=== PATIENT | male | born 1955 | race Caucasian/White ===

== ENCOUNTER 2022-07-28 14:11 | Emergency (ER) | payer OTHER, SELFPAY ==
[2022-07-28 14:36] VITALS: BP 154/91; PULSE 97; RESP 18; TEMP 36.4; O2SAT 95; BMI 36.9
--- NOTE | 2022-07-28 15:41 | ED_ITS ---
HPI - General Adult General Chief complaint: Extremity Pain/Injury, Lower Stated complaint: Gout attack, leg pain Time Seen by Provider: 07/28/22 15:15 History of Present Illness HPI narrative: This 66-year-old male comes in reporting a flare-up of gout in his right lower extremity. He states that he has a history of gout and has received prednisone and indomethacin to treat at. He does not report any other injury event. He reports pain in the inferior aspect of the right medial malleolus. He is wearing an Keyur wrap over this area along with a stocking and a shoe. When I stated that most people with a gout flare up did not tolerate any kind of clothing or pressure on that area he was insistent that this was in fact a gout flare up. He also states that he ran out of his citalopram 2 weeks ago. He does have arrangements for follow-up with a dentist and with the primary ph ysician. Related Data Home Medications Medication Instructions Recorded Confirmed allopurinol 100 mg tablet 100 mg PO DAILY 07/28/22 07/28/22 citalopram 40 mg tablet 20 mg PO BID 07/28/22 07/28/22 indomethacin 25 mg capsule 25 mg PO BID 07/28/22 07/28/22 Previous Rx's Medication Instructions Recorded citalopram 40 mg tablet 40 mg PO DAILY #20 tabs 07/28/22 indomethacin 25 mg capsule 25 mg PO TID #15 caps 07/28/22 prednisone 10 mg tablet 10 mg PO BID #10 tabs 07/28/22 Allergies Allergy/AdvReac Type Severity Reaction Status Date / Time No Known Drug Allergies Allergy Verified 07/28/22 14:44 Review of Systems Status of ROS: Reports: 10 or more systems reviewed and unremarkable except as noted in History and below Narrative: Constitutional: No fevers, no weight gain or loss. Eyes: No discharge. No vision changes. HENT: No congestion, no sore throat, no ear pain. He reports some dental pain and need for removal of a couple teeth. Cardiovascular: No chest pain, no palpitations. Respiratory: No shortness of breath, no wheezes, no cough. Gastrointestinal: No abdominal pain, no vomiting, no diarrhea. Genitourinary: No dysuria, no hematuria. Musculoskeletal: Normal range of motion. Pain in the medial aspect of the right ankle. Skin: No rashes, no pruritis. Neurological: No dizziness, weakness, sensory change, speech change. Endo/Heme/Allergies: No bruising or bleeding. No polydipsia. Pysch: no suicidality, no anxiety, no insomnia. All other systems reviewed and are negative. Exam Narrative: Exam Narrative: Constitutional: Well-developed, well-nourished, no acute distress. HEENT: Normocephalic, atraumatic. Neck: Normal range of motion. Nontender. Supple. Heart: Intact distal pulses. Lungs: No chest discomfort. No wheezes, rhonchi, or rales. Abdomen: Nontender. Back: Normal range of motion. Extremities: Normal range of motion. No sign of injury. Upon removing the Keyur wrap around his right ankle there is some erythema and some typical swelling distal from the Keyur wrap. Skin: Intact. No rash. Warm. No erythema or pallor. Neurologic: No altered sensation. No weakness. Alert and oriented. Psychiatric: No suicidality. No anxiety or depression. No insomnia. Nursing notes and vitals signs are reviewed. Const: Vital Signs, click to edit/add: Vital Signs - 24 hr 07/28/22 14:36 Temperature 97.5 F L Pulse Rate [Right Pulse Oximeter] 97 Respiratory Rate 18 Blood Pressure [Ri ght Upper Arm] 154/91 H Pulse Oximetry 95 Oxygen Delivery Me thod Room Air Course Vital Signs Vital signs: Initial Vital Signs Temperature 97.5 F L 07/28/22 14:36 Temperature Source Temporal Artery Scan 07/28/22 14:36 Pulse Rate 97 07/28/22 14:36 Pulse Rhythm 07/28/22 14:36 Pulse Strength 3+ Normal 07/28/22 14:36 Respiratory Rate 18 07/28/22 14:36 Blood Pressure 154/91 H 07/28/22 14:36 Blood Pressure Mean 112 07/28/22 14:36 Blood Pressure Position Sitting 07/28/22 14:36 Pulse Oximetry 95 07/28/22 14:36 Oxygen Delivery Method 07/28/22 14:36 Vital Signs Temperature 97.5 F L 07/28/22 14:36 Pulse Rate 97 07/28/22 14:36 Respiratory Rate 18 07/28/22 14:36 Blood Pressure 154/91 H 07/28/22 14:36 Pulse Oximetry 95 07/28/22 14:36 Oxygen Delivery Method 07/28/22 14:36 Temperature 97.5 F L 07/28/22 14:36 Pulse Rate 97 07/28/22 14:36 Respiratory Rate 18 07/28/22 14:36 Blood Pressure 154/91 H 07/28/22 14:36 Pulse Oximetry 95 07/28/22 14:36 Oxygen Delivery Method 07/28/22 14:36 Medical Decision Making MDM Narrative Medical decision making narrative: This patient comes in with increased pain in the medial aspect of his right ankle. He does not report any other injury event to trigger this and states that this is most certainly gout. When I questioned him how typically people with a gout flare up are not tolerant of wearing anything on the affected area he reassured me that he knew his body in that this was in fact a gout flare up. The patient does have normal vital signs and he is able to ambulate. It seemed best not to generate an argument over this particular diagnosis. I advised him to follow up with primary physician. I did provide prescription for a few tablets of prednisone and indomethacin. Additionally I did also prescribe citalopram. He plans to follow-up with a dentist and with the primary physician. Discharge Plan Discharge Clinical Impression: Depression, Arthralgia of ankle, right Patient Disposition: Home, Self-Care Condition: Unchanged Additional Instructions: Take medication as needed and indicated. Follow up with primary physician for ongoing management. Prescriptions: New prednisone 10 mg tablet 10 mg PO BID Qty: 10 0RF citalopram 40 mg tablet 40 mg PO DAILY Qty: 20 0RF indomethacin 25 mg capsule 25 mg PO TID Qty: 15 0RF Rx Instructions: administer with food or milk No Action citalopram 40 mg tablet 20 mg PO BID allopurinol 100 mg tablet 100 mg PO DAILY indomethacin 25 mg capsule 25 mg PO BID Rx Instructions: administer with food or milk Follow Up/Referrals: Donovan Smith MD [Primary Care Provider] - Stand Alone Forms: [employer] Info Instructions
== END 2022-07-28 16:20 | disposition home or self-care (01) ==
PROVIDERS: Emergency Provider Emergency Medicine Emergency Medical Services; PCP Family Medicine
DX: M25.571 Pain in right ankle and joints of right foot (principal); F32.A Depression, unspecified
CPT/HCPCS: 99283; 99284

== ENCOUNTER 2022-10-22 08:21 | Emergency (ER) | payer MEDICARE, SELFPAY ==
[2022-10-22 08:28] VITALS: BP 147/83; PULSE 97; RESP 20; TEMP 36.5; O2SAT 92; BMI 38.0
--- NOTE | 2022-10-22 15:40 | ED.GENADULT ---
HPI - General Adult General Date Seen: 10/22/22 Chief complaint: Unspecified Complaint, Adult Stated complaint: Medication refill/Citalopram Time Seen by Provider: 10/22/22 09:38 Source: patient Mode of arrival: ambulatory Limitations: no limitations History of Present Illness HPI narrative: Patient is a very nice 66-year-old gentleman, who failed going to his primary care visit, as he missed this. He presents here for refill of his gout medications in his depression medication. He is very sheepish about this and apologetic, but says he really needs medication as he has been off of his depression medication now for 3 weeks. He is not suicidal or homicidal, but would really like to get back on it. His medications that he was on for his gout were outlined in his previous visit which I was able to review. Related Data Home Medications Medication Instructions Recorded Confirmed allopurinol 100 mg tablet 100 mg PO DAILY 07/28/22 07/28/22 citalopram 40 mg tablet 20 mg PO BID 07/28/22 07/28/22 indomethacin 25 mg capsule 25 mg PO BID 07/28/22 07/28/22 Previous Rx's Medication Instructions Recorded citalopram 40 mg tablet 40 mg PO DAILY #20 tabs 07/28/22 indomethacin 25 mg capsule 25 mg PO TID #15 caps 07/28/22 prednisone 10 mg tablet 10 mg PO BID #10 tabs 07/28/22 citalopram 40 mg tablet 20 mg PO DAILY #30 tabs 10/22/22 indomethacin 25 mg capsule 25 mg PO TID #15 caps 10/22/22 prednisone 10 mg tablet 10 mg PO BID #10 tabs 10/22/22 Allergies Allergy/AdvReac Type Severity Reaction Status Date / Time No Known Drug Allergies Allergy Verified 07/28/22 14:44 Review of Systems Status of ROS: Reports: 6 or more systems reviewed and unremarkable except as noted in History and below PFSH PFSH Social History Smoking Status: Never smoker Do you use any of these nicotine containing products: None Second hand tobacco smoke exposure: No How often do you have a drink containing alcohol: 2-3 times a week How many standard drinks containing alcohol do you have on a typical day: 3 or 4 AUDIT-C Alcohol total score: 4 Non-prescribed substance use: denies use Exam Narrative: Exam Narrative: Patient is seen in room 6 he has no apparent distress is clear normal bilaterally is pupils equal round reactive to light, TMs normal oropharynx normal there is no adenopathy anterior posterior chains chest is clear heart sounds are normal, abdomen is soft there is no guarding, examination left foot shows stigmata of gout over the great toe, but is not acutely irritated pre rate now. Const: Vital Signs, click to edit/add: Vital Signs - 24 hr 10/22/22 08:28 Temperature 97.7 F Pulse Rate [Right Pulse Oximeter] 97 Respiratory Rate 20 Blood Pressure [Ri ght Upper Arm] 147/83 H Pulse Oximetry 92 Oxygen Delivery Me thod Room Air Course Vital Signs Vital signs: Initial Vital Signs Temperature 97.7 F 10/22/22 08:28 Temperature Source Temporal Artery Scan 10/22/22 08:28 Pulse Rate 97 10/22/22 08:28 Respiratory Rate 20 10/22/22 08:28 Blood Pressure 147/83 H 10/22/22 08:28 Blood Pressure Mean 104 10/22/22 08:28 Blood Pressure Position Sitting 10/22/22 08:28 Pulse Oximetry 92 10/22/22 08:28 Oxygen Delivery Method 10/22/22 08:28 Vital Signs Temperature 97.7 F 10/22/22 08:28 Pulse Rate 97 10/22/22 08:28 Respiratory Rate 20 10/22/22 08:28 Blood Pressure 147/83 H 10/22/22 08:28 Pulse Oximetry 92 10/22/22 08:28 Oxygen Delivery Method 10/22/22 08:28 Temperature 97.7 F 10/22/22 08:28 Pulse Rate 97 10/22/22 08:28 Respiratory Rate 20 10/22/22 08:28 Blood Pressure 147/83 H 10/22/22 08:28 Pulse Oximetry 92 10/22/22 08:28 Oxygen Delivery Method 10/22/22 08:28 Medical Decision Making MDM Narrative Medical decision making narrative: Patient is seen in the emergency room, he is stable, I reviewed the previous notes, I do not think it is unreasonable to put him back on his indomethacin and prednisone as needed, small supply given, and putting him back on his it depression medications and we did make him a follow-up visit with his primary care physician. In like fill. He was very comfortable with this plan. Discharge Plan Discharge Clinical Impression: Medication refill, Gout, Depression Patient Disposition: Home, Self-Care Condition: Stable Instructions: Medicine Refill (ED) Additional Instructions: Follow up appointment made at the [facility] on 11/04 with a 1:15pm arrival time. If you have any questions or need to reschedule, please call [phone]. [facility] [address] [place] [address] Prescriptions: New indomethacin 25 mg capsule 25 mg PO TID Qty: 15 0RF Rx Instructions: administer with food or milk prednisone 10 mg tablet 10 mg PO BID Qty: 10 0RF citalopram 40 mg tablet 20 mg PO DAILY Qty: 30 2RF No Action citalopram 40 mg tablet 20 mg PO BID allopurinol 100 mg tablet 100 mg PO DAILY indomethacin 25 mg capsule 25 mg PO BID Rx Instructions: administer with food or milk prednisone 10 mg tablet 10 mg PO BID Qty: 10 0RF citalopram 40 mg tablet 40 mg PO DAILY Qty: 20 0RF indomethacin 25 mg capsule 25 mg PO TID Qty: 15 0RF Rx Instructions: administer with food or milk Follow Up/Referrals: Donovan Smith MD [Primary Care Provider] - Stand Alone Forms: [employer] Info Instructions
== END 2022-10-22 10:26 | disposition home or self-care (01) ==
PROVIDERS: Emergency Provider Family Medicine; PCP Family Medicine
DX: Z76.0 Encounter for issue of repeat prescription (principal); M10.9 Gout, unspecified; F32.A Depression, unspecified
CPT/HCPCS: 99282; 99283

== ENCOUNTER 2022-11-04 13:43 | Outpatient (CLI) | payer MEDICARE, SELFPAY ==
[2022-11-04 23:06] LABS: PSA Screen* 0.86 ng/mL (0.10-4.00)
== END 2022-11-04 13:44 | disposition home or self-care (01) ==
PROVIDERS: PCP Family Medicine; Visit Provider Family Medicine
DX: Z00.00 Encounter for general adult medical examination without abnormal findings (principal); F32.A Depression, unspecified; I10 Essential (primary) hypertension; M10.9 Gout, unspecified
CPT/HCPCS: 84153; 84550

== ENCOUNTER 2024-01-02 08:16 | Outpatient (CLI) | payer MEDICARE, SELFPAY | END 2024-01-02 08:17 | disposition home or self-care (01) | PROVIDERS: PCP Family Medicine; Visit Provider Family Medicine | DX: Z00.00 Encounter for general adult medical examination without abnormal findings (principal); I10 Essential (primary) hypertension; E11.9 Type 2 diabetes mellitus without complications; M10.9 Gout, unspecified; E78.00 Pure hypercholesterolemia, unspecified; M25.572 Pain in left ankle and joints of left foot | CPT/HCPCS: 80053; 80061; 84550; G0103 ==

== ENCOUNTER 2025-03-01 08:06 | Outpatient (CLI) | payer MEDICARE, SELFPAY | END 2025-03-01 08:07 | disposition home or self-care (01) | PROVIDERS: PCP Family Medicine; Visit Provider Family Medicine | DX: E78.00 Pure hypercholesterolemia, unspecified (principal); Z12.5 Encounter for screening for malignant neoplasm of prostate | CPT/HCPCS: 80061; 80076; 82043; 82570; G0103 ==

== ENCOUNTER 2025-06-02 08:08 | Outpatient (CLI) | payer MEDICARE, SELFPAY | END 2025-06-02 08:09 | disposition home or self-care (01) | LOC: NFLDREF 06-07 03:21 | PROVIDERS: PCP Family Medicine; Referring Provider Family Medicine; Visit Provider Family Medicine | DX: E78.00 Pure hypercholesterolemia, unspecified (principal); I10 Essential (primary) hypertension; E11.9 Type 2 diabetes mellitus without complications | CPT/HCPCS: 80053; 80061; 82043; 82570 ==